=== PATIENT | female | born 1975 | race Caucasian/White ===

== ENCOUNTER 2017-09-30 15:12 | Emergency (ER) | payer OTHER ==
[2017-09-30 15:56] VITALS: BP 135/84
--- NOTE | 2017-09-30 17:17 | UC ---
Delmar Romero SooYoung, scribed for Leopoldo Williamson MD on 09/30/17 at 1649 . Respiratory Complaint HPI - HPI Summary HPI Summary: A 42 y/o F presents to [facility] – [place] c/o ongoing cough onset two months ago and worsening. Associated sx: congestion, chest pressure, SOB, headaches, body aches , fevers, chills. Pt has not taken any treatments. PMHx: [place] in 2011, valve problem, hole in heart, cardiac stent, asthma, PNA, bronchitis. Alleviating factors include inhaler, nebulizer. She is scheduled to see her parking meter installer tomorrow. - History of Current Complaint Chief Complaint: UCRespiratory Stated Complaint: COUGH Time Seen by Provider: 09/30/17 16:22 Hx Obtained From: Patient Hx Last Menstrual Period: hysterectomy Onset/Duration: Gradual Onset, Lasting Weeks - two months, Still Present Timing: Constant Severity Initially: Moderate Severity Currently: Moderate Pain Intensity: 6 Pain Scale Used: 0-10 Numeric Character: Cough: Productive Aggravating Factors: Deep Breaths Alleviating Factors: Bronchodilator Associated Signs And Symptoms: Positive: Fever, Chills, Wheezing, URI, Nasal Congestion - Allergies/Home Medications Allergies/Adverse Reactions: Allergies Allergy/AdvReac Type Severity Reaction Status Date / Time Penicillins AdvReac Mild Nausea And Verified 09/30/17 15:56 Vomiting milk Allergy Abdominal Uncoded 09/30/17 15:56 Pain Home Medications: Home Medications Bethanechol TAB* [Urecholine TAB*] 1 tab PO BID 09/30/17 [History Confirmed ] Budesonide/Formote 80/4.5(NF) [Symbicort 80/4.5 (NF)] 1 puff INH DAILY 09/30/17 [History Confirmed 09/30/17] LORazepam TAB(*) [Ativan 1 MG TAB (*)] 1 tab PO DAILY 09/30/17 [History Confirmed 09/30/17] Loratadine 10 mg PO BEDTIME 09/30/17 [History Confirmed 09/30/17] PMH/Surg Hx/FS Hx/Imm Hx Previously Healthy: No Cardiovascular History: Hypertension, Myocardial Infarction Respiratory History: Asthma, Bronchitis, Pneumonia - Surgical History Surgical History: Yes Surgery Procedure, Year, and Place: c section x 2, cardiac stents x2 2012 - Family History Known Family History: Positive: Cardiac Disease, Diabetes - Social History Occupation: Unemployed Lives: With Family Alcohol Use: None Substance Use Type: None Smoking Status (MU): Heavy Every Day Tobacco Smoker Type: Cigarettes Amount Used/How Often: 1/2 pack a day Length of Time of Smoking/Using Tobacco: 10 yrs Have You Smoked in the Last Year: Yes Household Exposure Type: Cigarettes Review of Systems Constitutional: Fever, Chills ENT: Sinus Congestion Respiratory: Shortness Of Breath, Cough Cardiovascular: Other - chest pressure Musculoskeletal: Myalgia Neurological: Headache All Other Systems Reviewed And Are Negative: Yes Physical Exam Triage Information Reviewed: Yes Appearance: Well-Appearing, No Pain Distress Vital Signs: Initial Vital Signs Temp 98.4 F 09/30/17 15:46 Pulse 48 09/30/17 15:46 Resp 16 09/30/17 15:46 BP 135/84 09/30/17 15:46 Pulse Ox 100 09/30/17 15:46 Vital Signs Reviewed: Yes Eyes: Positive: Other: - EOMI, DALE ENT Exam: Normal Neck: Positive: Supple, Nontender Respiratory: Positive: No respiratory distress, Wheezing - scattered wheezing bilaterally Cardiovascular: Positive: RRR, No Murmur. Negative: Tachycardia Abdomen Description: Positive: Nontender, Soft Bowel Sounds: Positive: Present Musculoskeletal: Positive: Strength Intact, ROM Intact, No Edema Neurological: Positive: Other: - nml, sensory/motor intact, A&O x 3 Psychological: Positive: Age Appropriate Behavior Skin: Positive: Other - warm, skin color reflects adequate perfusion, dry Diagnostic Evaluation - Laboratory O2 Sat by Pulse Oximetry: 100 Respiratory Course/Dx - Course Course Of Treatment: A 42 y/o F presents to E c/o ongoing cough onset two months ago and worsening. Associated sx: congestion, chest pressure, SOB, headaches, body aches, fevers, chills. Pt has not taken any treatments. PMHx: [place] in 2011, valve problem, hole in heart, cardiac stent, asthma, PNA, bronchitis. Alleviating factors include inhaler, nebulizer. She is scheduled to see her parking meter installer tomorrow. Pre-Hypertensive BP reading (121-139/81-89); patient referred to PCP for follow-up. Medications reviewed. DISCUSSED WITH PATIENT DUE TO REPORTED HEART AND OTHER MEDICAL HISTORY, THE BEST PLACE FOR FURTHER EVALUATION AND CARE IS THE EMERGENCY DEPARTMENT. PATIENT REPORTS SHE HAS A SCHEDULED APPOINTMENT WITH HER SEED TECHNICIAN IN [place] TOMORROW, . THE PATIENT REPORTS SHE FEELS THIS IS BRONCHITIS EVERYONE ELSE IN THE HOUSE HAS IT AND SHE IS COUGHING UP PHLEGM AND WHEEZING. SHE DECLINES GOING TO THE EMERGENCY DEPARTMENT AND PREFERS BRONCHITIS/COPD TREATMENT AT THIS TIME AND F/U WITH HER SEED TECHNICIAN TOMORROW. SHE WILL GO TO THE EMERGENCY DEPARTMENT FOR ANY WORSENING OF HER CONDITION. - Differential Dx/Diagnosis Provider Diagnoses: 1. Blood pressure in poor control. DYPNEA AND COUGH. BRONCHITS WITH COPD EXACERBATION Discharge - Discharge Plan Condition: Stable Disposition: HOME Prescriptions: Albuterol/Ipratropium NEB.CHARU* [Duoneb (Albuterol 2.5 MG/Ipratropium 0.5 MG)] 1 neb INH Q6H PRN #30 neb.charu PRN Reason: Dyspnea Azithromyxin ELGIN (NF) [Z-Elgin (Zithromax) 250 mg tabs #6] 2 tab PO .TODAY, THEN 1 DAILY #6 tab Patient Education Materials: Acute Bronchitis (ED), COPD (Chronic Obstructive Pulmonary Disease) (ED) Referrals: Eileen Bagley PA [Primary Care Provider] - Additional Instructions: FOLLOW UP WITH YOUR SEED TECHNICIAN TOMORROW SCHEDULED AND YOUR PRIMARY CARE DOCTOR. GO TO THE EMERGENCY DEPARTMENT FOR ANY WORSENING OF YOUR CONDITION OR QUESTIONS OR CONCERNS. The documentation as recorded by the Delmar enriquez SooYoung accurately reflects the service I personally performed and the decisions made by me, Leopoldo Williamson MD.
== END 2017-09-30 16:44 | disposition home or self-care (01) ==
LOC: UCEAST 15:12
DX: R03.0 Elevated blood-pressure reading, without diagnosis of hypertension (principal); R06.00 Dyspnea, unspecified; R05 Cough; J40 Bronchitis, not specified as acute or chronic; J44.1 Chronic obstructive pulmonary disease with (acute) exacerbation; Z72.0 Tobacco use
CPT/HCPCS: 99212; G0463

== ENCOUNTER 2018-01-14 10:24 | Emergency (ER) | payer MEDICAID, OTHER ==
[2018-01-14 10:45] VITALS: BP 128/54
--- NOTE | 2018-01-14 11:10 | UC ---
Respiratory Complaint HPI - HPI Summary HPI Summary: Pt presents with chest pressure of varying severity over the last 5 days. She tells me that she has a history of cardiac abnormalities, [place], and stenting. Her sister about 6 months ago from a cardiac disorder. Pt also knows that she has lung issues and gets bronchitis often. She is frustrated today because everytime she has a resp issue, providers will send her to the hospital due to her cardiac symptoms. She also complains of feeling weak and tired. Denies fever , chills, SOB, abdominal pain, n/v/d/c. She does have an albuterol inhaler and duoneb for her nebulizer at home, but doesn't like to use it because it makes her heart "go too fast". - History of Current Complaint Chief Complaint: UCChestPain Stated Complaint: RESP ISSUE COUGH Time Seen by Provider: 01/14/18 10:43 Hx Obtained From: Patient Hx Last Menstrual Period: hysterectomy Onset/Duration: Gradual Onset Timing: Constant Severity Initially: Mild Severity Currently: Mild Pain Intensity: 3 Pain Scale Used: 0-10 Numeric - Allergies/Home Medications Allergies/Adverse Reactions: Allergies Allergy/AdvReac Type Severity Reaction Status Date / Time Penicillins Allergy Nausea And Verified 01/14/18 10:34 Vomiting milk Allergy Abdominal Uncoded 01/14/18 10:34 Pain Home Medications: Home Medications Loratadine 10 mg PO DAILY 01/14/18 [History Confirmed 01/14/18] PMH/Surg Hx/FS Hx/Imm Hx Cardiovascular History: Hypertension Respiratory History: COPD, Asthma Psychological History: Anxiety, Depression - Surgical History Surgical History: Yes Surgery Procedure, Year, and Place: c section x 2, cardiac stents x2 2012 - Family History Known Family History: Positive: Cardiac Disease, Diabetes - Social History Lives: With Family Alcohol Use: Rare Substance Use Type: None Smoking Status (MU): Heavy Every Day Tobacco Smoker Type: Cigarettes Amount Used/How Often: 2 PPD Length of Time of Smoking/Using Tobacco: 10 yrs Have You Smoked in the Last Year: Yes Household Exposure Type: Cigarettes Review of Systems Constitutional: Negative Skin: Negative ENT: Negative Respiratory: Cough Cardiovascular: Other - Chest pressure Gastrointestinal: Negative Genitourinary: Negative Neurological: Negative Psychological: Negative All Other Systems Reviewed And Are Negative: Yes Physical Exam - Summary Physical Exam Summary: GENERAL: NAD. WDWN. No pain distress. SKIN: No rashes, sores, ulcers, masses, lesions. HEENT: Head: AT/NC Eyes: Conjunctiva clear without inflammation or discharge. Ears: Hearing grossly normal. TMs intact, no bulging, erythema, or edema. Nose: Nasal mucosa pink and moist. NTTP maxillary and frontal sinus. Throat: Posterior oropharynx without exudates, erythema, or tonsillar enlargement. Uvula midline. NECK: Supple. Nontender. No lymphadenopathy. CHEST: Mild wheezing throughout. CTAB. No r/r. No accessory muscle use. Breathing comfortably and in no distress. CV: RRR. Pulses intact. Brisk cap refill. NEURO: Alert. CN II-XII grossly intact. PSYCH: Age appropriate behavior. Triage Information Reviewed: Yes Vital Signs: Initial Vital Signs Temp 98.0 F 01/14/18 10:37 Pulse 53 01/14/18 10:37 Resp 16 01/14/18 10:37 BP 128/54 01/14/18 10:37 Pulse Ox 100 01/14/18 10:37 UC Diagnostic Evaluation - Laboratory O2 Sat by Pulse Oximetry: 100 Respiratory Course/Dx - Course Course Of Treatment: UA negative. EKG Sinus bradycardia HR 48, LVH, left anterior fascicular block as read by Dr. Fitzpatrick. Pt refused ED. CXR: IMPRESSION : Stigmata of obstructive lung disease. No acute pulmonary or cardiac process evident. I advised patient that her EKG looks changed from her previous one on record and her symptoms could be related to this - she should seek further evaluation in the ED. She refused to go to the ED and agreed to sign out AMA, but would like an antibiotic for her "bronchitis". - Differential Dx/Diagnosis Provider Diagnoses: Chest pressure Discharge - Discharge Plan Condition: Stable Disposition: AGAINST MEDICAL ADVICE Prescriptions: DOXYcycline CAP(*) [DOXYcycline 100MG CAP(*)] 100 mg PO BID #14 cap Patient Education Materials: Chest Pain (DC) Referrals: No Primary Care Phys,NOPCP [Primary Care Provider] - Additional Instructions: If you develop a fever, shortness of breath, chest pain, new or worsening symptoms - please call your PCP or go to the ED.
--- NOTE | 2018-01-14 11:19 | RAD ---
INDICATION: Cough. Asthma. History of smoking. COMPARISON: July 01, 2016 TECHNIQUE: Dual energy PA and routine lateral views of the chest were obtained. REPORT: Elevated lung volumes with increased AP thoracic diameter and partial flattening of the hemidiaphragms. No focal pulmonary lesion, compelling alveolar consolidation, pleural effusion, pneumothorax. The heart, pulmonary vasculature, and mediastinal contours are unremarkable. Unremarkable soft tissue contours and osseous structures. IMPRESSION: Stigmata of obstructive lung disease. No acute pulmonary or cardiac process evident.
== END 2018-01-14 11:37 | disposition left against medical advice (07) ==
LOC: UCEAST 10:24
DX: R07.89 Other chest pain (principal); R00.1 Bradycardia, unspecified; I10 Essential (primary) hypertension; J44.9 Chronic obstructive pulmonary disease, unspecified; F41.9 Anxiety disorder, unspecified; F32.9 Major depressive disorder, single episode, unspecified; Z88.0 Allergy status to penicillin; F17.210 Nicotine dependence, cigarettes, uncomplicated
CPT/HCPCS: 71046; 81003; 93005; 99212; G0463

== ENCOUNTER 2019-01-01 09:54 | Emergency (ER) | payer OTHER ==
--- OUTSIDE RECORDS SUMMARY | 2019-01-01 10:01 | XMS REPORT | Continuity of Care Document ---
:1975 External Reference #:[id number] Author Name Paulo Murdock MD Address [address] [place] [address] Care Team Providers Name Role Phone Leeanna Rios MD Care Team Information Acid Regenerator Unavailable Radha Flores MD, PHD Primary Care Physician Unavailable Payers Type Date Identification Numbers Payment Provider Subscriber Policy Number: [id number] [employer] [place] You PayID: [id number] [address] [place] [address] Advance Directives Description No Information Available Problems Date Description Provider Status Onset: 12/11/2012 Coronary arteriosclerosis Grella, Dora A., ANP Active Onset: 12/11/2012 Benign essential hypertension Grella, Dora A., ANP Active Onset: 12/11/2012 Mixed hyperlipidemia Grella, Dora A., ANP Active Onset: 05/21/2013 Coronary arteriosclerosis Grella, Dora A., ANP Active Onset: 05/21/2013 Dyspnea Grella, Dora A., ANP Active Onset: 08/04/2015 Essential hypertension Grella, Dora A., ANP Active Onset: 08/06/2015 Atherosclerotic heart disease of Grella, Dora A., 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 Onset: 08/06/2015 Mixed hyperlipidemia Grella, Dora A., ANP Active Onset: 08/06/2015 Precordial pain Grella, Dora A., ANP Active Onset: 08/06/2015 Dyspnea Grella, Dora A., ANP Active Onset: 08/06/2015 Anticoagulant Grella, Dora A., ANP Active Onset: 01/02/2016 Obstructive hypertrophic Grella, Dora A., ANP Active cardiomyopathy Onset: 01/02/2016 Acute sinusitis Dora Fernandez ANP Active Onset: 01/02/2016 Anemia Dora Fernandez ANP Active Onset: 11/23/2016 Mitral valve disorder Carla Loera, Active MSN, [employer] Onset: 01/29/2018 Chest pain Cori Garcia PA Active Onset: 01/29/2018 Malaise and fatigue Cori Garcia PA Active Family History Date Family Member(s) Problem(s) Comments General Not Known - Adopted General Emphysema Social History Type Date Description Comments Sex Unknown Marital Status Patient is Lives With Significant Other Home Environment Lives With Fiance and 2 kids Diet Patient follows no dietary restrictions Occupation Disabled Cigarette Use Pack Years - 08 Tobacco Use Start: Unknown currently smokes 1/2 Pack Daily Smoking Status Reviewed: 12/04/18 currently smokes 1/2 Pack Daily ETOH Use Never used alcohol Tobacco Use Start: Unknown Patient is a current smoker, smokes every day Exercise Type/Frequency Exercises regularly Allergies, Adverse Reactions, Alerts Date Description Reaction Status Severity Comments Penicillins Active Medications Medication Date Status Form Strength Qnty SIG Indications Ordering Provider Metoprolol 08/15/ Active Tablets ER 50mg 90tab 1/2 tablet R53.83 Loera , Succinate ER 2017 24HR s by mouth Carla twice a day YI Pittman, [employer] Symbicort 08/14/ Active Aerosol 80-4.5mcg 30.6g inhale one J44.9 Kheti, 2017 /Act m puff by MD Martín mouth twice a day . rinse mouth after use. please teach how to use inhaler. Proventil HFA 06/15/ Active Aerosol 108(90Bas 1unit two puffs J44.9 Kheti, 2015 e) s every 4 MD Martín mcg/Act hours as needed for shortness of breath Aspirin Ec Low 02/13/ Active Tablets DR 81mg 30tab Take One I25.10 Loera, Dose 2015 s Tablet By Carla Mouth Every Day , MSN, [employer] Nitrostat / Active Tablets 0.4mg 30tab 1 tab sl Loera, 0000 Sub s every 5 min Carla x3 chest Toya rubi , MSN, [employer] Claritin 00/ Active Capsules 10mg 1 by mouth Unknown 0000 every day Bethanechol / Active Tablets 10mg 1 tabs by Unknown Chloride 0000 mouth twice a day for urinary frequency Atorvastatin / Active Tablets 40mg 30tab Take One Loera, Calcium 0000 s Tablet By Carla Mouth Every Day , MSN, [employer] Nicotine 11/15/ Hx Patches 21mg/24HR 14uni starter 1 Murdock, Transdermal 2018 24HR ts patch per MD Paulo System Step 1 day Nicotine 11/15/ Hx Patches 14mg/24HR 14uni weaning Murdock, Transdermal 2018 24HR ts week 3. MD Paulo System Step 2 topicalaly 1 patch daily Nicotine 11/15/ Hx Patches 7mg/24HR 14uni weaning Murdock, Transdermal 2018 24HR ts week 5. 1 MD Paulo System Step 3 patch topically daily Metoprolol 04/22/ Hx Tablets 25mg 90tab 1 by mouth R53.83 Loera, Tartrate 2018 - s twice a day Carla 08/15/ 2017 , MSN, [employer] Metoprolol 04/18/ Hx Tablets 25mg 60tab 1/2 tab by R53.83 Eric Tartrate 2018 - s mouth twice , Evaristo 04/22/ a day Emily Lee, 2018 [facility] Ranexa 04/18/ Hx Tablets ER 500mg 60tab 1 tab by I25.119 Eric 2018 - 12HR s mouth twice , Evaristo 07/22/ a day Emily Lee, 2018 [facility] Clopidogrel 03/22/ Hx Tablets 75mg 30tab 1 by mouth I25.10 Eric Bisulfate 2018 s every day , Evaristo Lee M.D., [facility] Ranexa 03/22/ Hx Tablets ER 500mg 60tab 1 tab by I25.10 Eric 2018 12HR s mouth twice , Ivana day Emily Lee, [facility] Nicotine Mini 03/22/ Hx Lozenges 2mg 162un Use 1 F17.210 Eric 2018 its lozenge , Evaristo every 2-3 Emily Lee, hours as FACC needed. Maximum 12 lozenges per day. Levofloxacin // Hx Tablets 750mg 5tabs 1 by mouth J44.9 Sundeep, 2016 every day MD Martín Metoprolol 06/10/ Hx Tablets ER 50mg 120ta Take Two Loera, Succinate ER 2016 24HR bs Tablets By Carla Mouth Twice A Day , MSN, [employer] Spiriva Respimat 02/22/ Hx Aerosol 2.5mcg/Ac 4gm take 2 J41.0 Cheli2016 t puffs once MD Martín daily. Please load and teach medication Metoprolol 01/31/ Hx Tablets ER 50mg 1 by mouth I42.1 Loera, Succinate ER 2016 - 24HR twice a day Carla 2016 , MSN, [employer] Nicotine 10/23/ Hx Gum 2mg 1unit take 1 I42.1 Sundeep Polacrilex 2015 s piece every MD Martín 2 hours as needed for cravings. Doxycycline 10/05/ Hx Tablets 100mg 10tab Take 1 Sundeep Hyclate 2015 s tablet MD Martín twice daily. Compression, 07/03/ Hx 20-30MMHG 1Pair please Leonidas Murdock High, 2016 measure MD Paulo Bilateral, Class I Metoprolol 12/31/ Hx Tablets ER 50mg 100ta 2 by mouth I42.1 Murdock, Succinate ER 2016 24HR bs every day, MD Paulo for one week, then three for one week, then four for one week, then continue the four a day. Bactrim DS 12/31/ Hx Tablets 800-160mg 14tab one po bid J01.90 Mathieu, 2016 s MD Paulo Metoprolol 08/04/ Hx Tablets ER 50mg 90tab 1 by mouth I10 Loera, Succinate ER 2014 - 24HR s every day Carla 2015 , MSN, [employer] Aspir-81 08/04/ Hx Tablets DR 81mg 90tab 1 by mouth I25.10 Evaristo 2014 - s every day Carla 2015 , MSN, [employer] Atorvastatin 08/04/ Hx Tablets 40mg 90tab Take One E78.2 Loera, Calcium 2014 s Tablet By Carla Mouth Every Day , MSN, [employer] Atorvastatin 12/18/ Hx Tablets 40mg 30tab Take One Guidry, Calcium 2013 s Tablet By Emmett Donaldson Every , PhD Day Carvedilol 01/09/ Hx Tablets 3.125mg 60tab tab po bid 414.01 Chao2012 - first dose Mohamud Pierce, 01/09/ at bedtime , PhD 2012 Metoprolol 01/09/ Hx Tablets 25mg 180ta 1.5 tabs po 414.01 Chao Tartrate 2012 bs bid Mohamud Pierce MD, PhD Chlorthalidone / Hx Tablets 25mg 90tab 1 po qd Unknown 0000 s Flovent HFA / Hx Aerosol 110mcg/Ac 2 puffs qd Unknown t Aspirin Ec / Hx Tablets DR 81mg 1 po qd Unknown 0000 Lipitor / Hx Tablets 40mg 30tab 1 po qd Guidry Mohamud Pierce, 12/18/ MD, PhD 2013 Plavix / Hx Tablets 75mg 30tab 1 po qd 414.01 Chao Mohamud Pierce, 05/21/ MD, PhD 2012 Lisinopril Hx Tablets 5mg 90tab Take One Tablet By Mohamud Pierce Mouth Every , PhD Seroquel / Hx Tablets 50mg take one Unknown 0000 tablet each night before bed Lorazepam / Hx Tablets 0.5mg tab twice a Unknown 0000 day as needed Gail / Hx Capsules 300mg 1 po qhs Unknown Carbonate 0000 Quetiapine / Hx Tablets 100mg 1 by mouth Unknown Fumarate 0000 every night at bedtime Trazodone HCL / Hx Tablets 50mg 1 po daily Unknown 0000 Metoprolol / Hx Tablets ER 50mg 120ta take two I42.1 Loera, Succinate ER 0000 - 24HR bs tablets by Carla 01/31/ mouth twice Simonetta 2016 a day , MSN, [employer] Atenolol / Hx Tablets 50mg 1 by mouth Unknown 0000 every day Docqlace / Hx Capsules 100mg Take One Unknown 0000 Capsule By Mouth Twice A Day Ibuprofen / Hx Tablets 800mg Take One Unknown 0000 Tablet By Mouth Every 8 Hours prn Oxcarbazepine / Hx Tablets 300mg 2 po tid Unknown 0000 Lorazepam / Hx Tablets 1mg 1 mg by Unknown 0000 mouth every 8 hours as needed anxiety Metoprolol 00/00/ Hx Tablets ER 50mg 120ta Take Two Loera, Succinate ER 0000 - 24HR bs Tablets By Carla 06/10/ Mouth Twice Simonetta 2016 A Day , MSN, [employer] Metoprolol 00/00/ Hx Tablets ER 50mg 120ta Take Two Davidenko Succinate ER 0000 24HR bs Tablets By Evaristo Mouth Twice M., M.D., A Day FACC Metoprolol 00/ Hx Tablets 25mg 1 tab by I42.1 Unknown Tartrate 0000 - mouth twice day 2017 R53.83 Immunizations CPT Code Status Date Vaccine Lot # [id number] Given 09/12/2012 flu vaccination Vital Signs Date Vital Result Comment 12/04/2018 11:02am BP Systolic Sitting Left Arm 124 mmHg BP Diastolic Sitting Left Arm 92 mmHg Heart Rate 63 /min Respiratory Rate 18 /min Height 62 inches 5'2" Weight 122.00 lb BMI (Body Mass Index) 22.3 kg/m2 BSA (Body Surface Area) 1.55 m2 [place] body weight in kilograms 50 kg O2 % BldC Oximetry 98 % Ora 06/03/2018 10:25am BP Systolic Sitting Right Arm 120 mmHg BP Diastolic Sitting Right Arm 80 mmHg Heart Rate 78 /min Respiratory Rate 16 /min Height 62 inches 5'2" Weight 120.00 lb BMI (Body Mass Index) 21.9 kg/m2 BSA (Body Surface Area) 1.54 m2 [place] body weight in kilograms 50 kg O2 % BldC Oximetry 94 % 04/18/2018 10:49am BP Systolic Sitting Left Arm 110 mmHg BP Diastolic Sitting Left Arm 68 mmHg Heart Rate 49 /min Respiratory Rate 16 /min Height 62 inches 5'2" Weight 122.00 lb BMI (Body Mass Index) 22.3 kg/m2 BSA (Body Surface Area) 1.55 m2 [place] body weight in kilograms 50 kg O2 % BldC Oximetry 98 % Room air 03/22/2018 11:27am BP Systolic Sitting Left Arm 102 mmHg BP Diastolic Sitting Left Arm 70 mmHg Heart Rate 66 /min Respiratory Rate 16 /min Height 62 inches 5'2" Weight 121.00 lb BMI (Body Mass Index) 22.1 kg/m2 BSA (Body Surface Area) 1.54 m2 [place] body weight in kilograms 50 kg 01/29/2018 1:03pm BP Systolic Sitting Left Arm 105 mmHg BP Diastolic Sitting Left Arm 68 mmHg Heart Rate 60 /min Respiratory Rate 18 /min Height 62 inches 5'2" Weight 117.00 lb BMI (Body Mass Index) 21.4 kg/m2 BSA (Body Surface Area) 1.52 m2 [place] body weight in kilograms 50 kg 10/10/2017 9:15am BP Systolic Sitting Left Arm 110 mmHg BP Diastolic Sitting Left Arm 78 mmHg Heart Rate 62 /min Respiratory Rate 16 /min Height 62 inches 5'2" Weight 119.00 lb BMI (Body Mass Index) 21.8 kg/m2 BSA (Body Surface Area) 1.53 m2 [place] body weight in kilograms 50 kg 08/20/2017 3:06pm BP Systolic Sitting Left Arm 118 mmHg BP Diastolic Sitting Left Arm 88 mmHg Heart Rate 60 /min Respiratory Rate 16 /min Height 62 inches 5'2" Weight 124.00 lb BMI (Body Mass Index) 22.7 kg/m2 BSA (Body Surface Area) 1.56 m2 [place] body weight in kilograms 50 kg 08/14/2017 4:09pm BP Systolic Sitting Right Arm 128 mmHg BP Diastolic Sitting Right Arm 82 mmHg Heart Rate 45 /min Respiratory Rate 16 /min Height 62 inches 5'2" Weight 125.00 lb BMI (Body Mass Index) 22.9 kg/m2 BSA (Body Surface Area) 1.57 m2 [place] body weight in kilograms 50 kg O2 % BldC Oximetry 98 % Ora 06/20/2017 11:43am BP Systolic Sitting Right Arm 118 mmHg BP Diastolic Sitting Right Arm 82 mmHg Heart Rate 44 /min Respiratory Rate 18 /min Height 62 inches 5'2" Weight 126.00 lb BMI (Body Mass Index) 23.0 kg/m2 BSA (Body Surface Area) 1.57 m2 [place] body weight in kilograms 50 kg 02/22/2017 1:39pm BP Systolic Sitting Right Arm 112 mmHg BP Diastolic Sitting Right Arm 68 mmHg Heart Rate 52 /min Respiratory Rate 16 /min Height 62 inches 5'2" Weight 128.00 lb BMI (Body Mass Index) 23.4 kg/m2 BSA (Body Surface Area) 1.58 m2 O2 % BldC Oximetry 98 % Room air 01/31/2017 11:14am BP Systolic Sitting Left Arm 122 mmHg BP Diastolic Sitting Left Arm 80 mmHg Heart Rate 36 /min Respiratory Rate 18 /min Height 62 inches 5'2" Weight 134.00 lb BMI (Body Mass Index) 24.5 kg/m2 BSA (Body Surface Area) 1.61 m2 11/23/2016 10:13am BP Systolic Sitting Left Arm 128 mmHg BP Diastolic Sitting Left Arm 78 mmHg Heart Rate 36 /min Respiratory Rate 16 /min Height 62 inches 5'2" Weight 131.00 lb BMI (Body Mass Index) 24.0 kg/m2 BSA (Body Surface Area) 1.60 m2 10/23/2016 1:43pm BP Systolic Sitting Right Arm 126 mmHg BP Diastolic Sitting Right Arm 74 mmHg Heart Rate 46 /min Respiratory Rate 16 /min Height 62 inches 5'2" Weight 134.00 lb BMI (Body Mass Index) 24.5 kg/m2 BSA (Body Surface Area) 1.61 m2 O2 % BldC Oximetry 98 % Room Air 09/18/2016 10:47am BP Systolic Sitting Left Arm 134 mmHg BP Diastolic Sitting Left Arm 80 mmHg Heart Rate 42 /min Respiratory Rate 16 /min Height 62 inches 5'2" Weight 135.00 lb BMI (Body Mass Index) 24.7 kg/m2 BSA (Body Surface Area) 1.62 m2 08/21/2016 1:10pm BP Systolic Sitting Right Arm 104 mmHg BP Diastolic Sitting Right Arm 56 mmHg Heart Rate 43 /min Respiratory Rate 18 /min Height 62 inches 5'2" Weight 143.00 lb BMI (Body Mass Index) 26.2 kg/m2 BSA (Body Surface Area) 1.66 m2 O2 % BldC Oximetry 97 % 08/07/2016 9:31am BP Systolic Sitting Left Arm 106 mmHg BP Diastolic Sitting Left Arm 62 mmHg Heart Rate 40 /min Respiratory Rate 16 /min Height 62 inches 5'2" Weight 140.00 lb BMI (Body Mass Index) 25.6 kg/m2 BSA (Body Surface Area) 1.64 m2 06/15/2016 9:38am BP Systolic Sitting Resting Right Arm 118 mmHg BP Diastolic Sitting Resting Right Arm 62 mmHg Heart Rate 37 /min Height 62 inches 5'2" Weight 142.00 lb BMI (Body Mass Index) 26.0 kg/m2 BSA (Body Surface Area) 1.65 m2 [place] body weight in kilograms 50 kg 04/07/2016 9:52am BP Systolic 112 mmHg BP Diastolic 62 mmHg Heart Rate 58 /min Height 62.5 inches 5'2.50" Weight 143.00 lb BMI (Body Mass Index) 25.7 kg/m2 BSA (Body Surface Area) 1.67 m2 [place] body weight in kilograms 51 kg 01/27/2016 11:05am BP Systolic Sitting Left Arm 110 mmHg BP Diastolic Sitting Left Arm 66 mmHg Heart Rate 70 /min Height 62 inches 5'2" Weight 137.00 lb BMI (Body Mass Index) 25.1 kg/m2 BSA (Body Surface Area) 1.63 m2 12/31/2015 11:16am BP Systolic Sitting Left Arm 124 mmHg BP Diastolic Sitting Left Arm 78 mmHg Heart Rate 60 /min Respiratory Rate 16 /min Height 62.5 inches 5'2.50" Weight 141.00 lb BMI (Body Mass Index) 25.4 kg/m2 BSA (Body Surface Area) 1.66 m2 08/04/2015 11:40am BP Systolic Sitting Right Arm 118 mmHg BP Diastolic Sitting Right Arm 78 mmHg Heart Rate 66 /min Respiratory Rate 16 /min Height 62.5 inches 5'2.50" Weight 131.00 lb BMI (Body Mass Index) 23.6 kg/m2 BSA (Body Surface Area) 1.61 m2 07/02/2013 2:07pm BP Systolic Sitting Right Arm 120 mmHg BP Diastolic Sitting Right Arm 64 mmHg Heart Rate 80 /min Respiratory Rate 16 /min Height 62.5 inches 5'2.50" Weight 133.00 lb BMI (Body Mass Index) 23.9 kg/m2 BSA (Body Surface Area) 1.62 m2 05/21/2013 3:27pm BP Systolic Sitting Right Arm 126 mmHg BP Diastolic Sitting Right Arm 80 mmHg Heart Rate 58 /min Respiratory Rate 16 /min Height 62.5 inches 5'2.50" Weight 140.00 lb BMI (Body Mass Index) 25.2 kg/m2 BSA (Body Surface Area) 1.65 m2 01/09/2013 2:52pm BP Systolic Sitting Right Arm 122 mmHg BP Diastolic Sitting Right Arm 92 mmHg Heart Rate 84 /min Respiratory Rate 16 /min Height 62.5 inches 5'2.50" Weight 154.00 lb BMI (Body Mass Index) 27.7 kg/m2 BSA (Body Surface Area) 1.72 m2 12/09/2012 1:14pm BP Systolic Sitting Right Arm 158 mmHg BP Diastolic Sitting Right Arm 98 mmHg Heart Rate 54 /min Respiratory Rate 16 /min Height 62.5 inches 5'2.50" Weight 155.00 lb BMI (Body Mass Index) 27.9 kg/m2 BSA (Body Surface Area) 1.73 m2 BP Systolic Recheck 130 mmHg BP Diastolic Recheck 80 mmHg Results Test Date Facility Test Result H/L Range Note LDL Cholesterol 03/21/2018 [facility] Cholesterol 117 mg/dL <200 1, 2 Profile [address] [place], [place] [id number] [phone] Triglycerides 158 mg/dL High <150 3 HDL Cholesterol 30 mg/dL Low >40 4 LDL-Cholesterol 55 mg/dL < 100 5 Reflex add FT3? Y Reflex add FT4? Y TSH Reflex FT4 03/21/2018 [facility] Thyroid Stim 1.39 uIU/mL N 0.30-4.20 And/Or FT3 [address] [facility] Hormone [place], [place] [id number] [phone] Reflex add FT3? Y Reflex add FT4? Y Comprehensive Metabolic 03/21/2018 [facility] Glucose 65 mg/dL Low 74-106 Panel [address] [place] [address] [phone] BUN 7 mg/dL N 7-18 Creatinine 0.7 mg/dL N 0.6-1.3 Glom Filtration Rate, Estimate >60 mL/min >60 If >60 mL/min >60 6 BUN/Creat 10.0 ratio Sodium 140 mmol/L N 136-145 Potassium 4.0 mmol/L N 3.5-5.1 Chloride 105 mmol/L N 98-107 Carbon Dioxide 29 mmol/L N 21-32 Anion Gap 6 mEq/L Low 8-16 Calcium 8.9 mg/dL N 8.5-10.1 Total Protein 7.0 g/dL N 6.4-8.2 Albumin 3.8 g/dL N 3.4-5.0 Globulin 3.2 g/dL N 1.9-4.3 Alb/Glob 1.2 ratio Bilirubin,Total 0.6 mg/dL N 0.2-1.0 Sgot/Ast 18 U/L N 15-37 SGPT/Alt 15 U/L N 12-78 Alkaline Phosphatase 30 U/L Low 45-117 Reflex add FT3? Y Reflex add FT4? Y CBS W/Automated Diff 03/21/2018 [facility] White Blood 9.7 K/uL N 3.1-10.[address] [place] [address] [phone] Red Blood Count 4.82 M/uL N 3.90-5.40 Hemoglobin 15.1 gm/dL N 11.6-15.8 Hematocrit 43.5 % N 36.0-46.1 Mean Cell Volume 90.2 fl N 80.9-99.0 Mean Corpuscular HGB 31.3 pg N 25.9-32.7 Mean Corpuscular HGB Conc 34.7 g/dL High 30.8-34.3 Platelet Count 115 K/uL Low 155-360 Red Cell Distri Width SD 44.0 fl N 3-47 Red Cell Distri Width %CV 13.6 % N 11.7-14.4 Mean Platelet Volume 10.9 fL N 8.9-12.4 Neut% 61.3 % N 40.4-72.8 Lymph % 28.5 % N 20.0-42.0 [place] % 8.2 % N 4.3-13.2 Eo% 1.8 % N 0.0-6.6 Bas% 0.2 % N 0.0-1.1 Neut# 5.95 K/uL N 1.8-7.0 Lymph # 2.76 K/uL N 1.0-4.0 [place] # 0.79 K/uL N 0.3-0.9 Eos # 0.17 K/uL N 0.0-0.5 Baso # 0.02 K/uL N 0.0-0.1 CBC W/Automated 11/23/2016 [facility] White Blood 11.1 K/uL High 3.1-10.7 [address] [place] [address] [phone] Red Blood Count 4.69 M/uL N 3.90-5.40 Hemoglobin 9.6 gm/dL Low 11.6-15.8 Hematocrit 32.0 % Low 36.0-46.1 Mean Cell Volume 68.2 fl Low 80.9-99.0 Mean Corpuscular HGB 20.5 pg Low 25.9-32.7 Mean Corpuscular HGB Conc 30.0 g/dL Low 30.8-34.3 Platelet Count 167 K/uL N 155-360 Red Cell Distri Width SD 46.2 fl N 3-47 Red Cell Distri Width %CV 19.2 % High 11.7-14.4 Mean Platelet Volume 10.5 fL N 8.9-12.4 8 Neut# 7.77 K/uL High 1.8-7.0 Lymph # 1.94 K/uL N 1.0-4.0 [place] # 1.01 K/uL High 0.3-0.9 Eos # 0.34 K/uL N 0.0-0.5 Baso # 0.03 K/uL N 0.0-0.1 Comprehensive Metabolic 11/23/2016 [facility] Glucose 85 mg/dL N 74-106 Panel [address] [place] [address] [phone] BUN 6 mg/dL Low 7-18 Creatinine 0.8 mg/dL N 0.6-1.3 Glom Filtration Rate, Estimate >60 mL/min N >60 If >60 mL/min N >60 9 BUN/Creat 7.5 ratio N Sodium 140 mmol/L N 136-145 Potassium 3.8 mmol/L N 3.5-5.1 Chloride 107 mmol/L N 98-107 Carbon Dioxide 28 mmol/L N 21-32 Anion Gap 5 mEq/L Low 8-16 Calcium 8.6 mg/dL N 8.5-10.1 Total Protein 7.4 g/dL N 6.4-8.2 Albumin 3.6 g/dL N 3.4-5.0 Globulin 3.8 g/dL N 1.9-4.3 Alb/Glob 0.9 ratio N Bilirubin,Total 0.2 mg/dL N 0.2-1.0 Sgot/Ast 13 U/L Low 15-37 10 SGPT/Alt 17 U/L N 12-78 Alkaline Phosphatase 31 U/L Low 45-117 LDL Cholesterol Profile 11/23/2016 [facility] Cholesterol 154 mg/dL N <200 11 [address] [place] [address] [phone] Triglycerides 131 mg/dL N <150 12 HDL Cholesterol 39 mg/dL Low >40 13 LDL-Cholesterol 89 mg/dL N < 100 14 Slide Review 11/23/2016 [facility] Slide Review DIFF ORDERED N [address] [place] [address] [phone] Path Review: 11/23/2016 [facility] Path Review: INDICATED,SLIDE N [address] <SEE NOTE> [place] [address] [phone] Differential-WBC 11/23/2016 [facility] Total Cells 100 #CELLS N Confirm [address] Counted [place] [address] [phone] Neutrophils% 74 % High 33-73 Lymph% 18 % Low 20-42 Monocyte% 6 % N 0-10 Eosinophil% 2 % N 0-5 Platelet Estimate NORMAL N Hypochromia 0-1+ N Anisocytosis 1+ N Microcytosis 2+ N CBC W/Automated Diff 04/07/2016 [facility] White Blood 9.6 K/uL 3.1-10.[address] Count [place] [address] [phone] Red Blood Count 4.20 M/uL 3.90-5.40 Hemoglobin 8.6 gm/dL Low 11.6-15.8 Hematocrit 30.5 % Low 36.0-46.1 Mean Cell Volume 72.6 fl Low 80.9-99.0 Mean Corpuscular HGB 20.5 pg Low 25.9-32.7 Mean Corpuscular HGB Conc 28.2 g/dL Low 30.8-34.3 Platelet Count 153 K/uL Low 155-360 Red Cell Distri Width SD 48.2 fl High 3-47 Red Cell Distri Width %CV 18.7 % High 11.7-14.4 Mean Platelet Volume 11.8 fL 8.9-12.4 Neut% 64.9 % 40.4-72.8 Lymph % 19.3 % 17.0-46.1 [place] % 9.5 % 4.3-13.2 Eo% 5.8 % 0.0-6.6 Bas% 0.5 % 0.0-1.1 Neut# 6.18 K/uL 1.8-7.0 Lymph # 1.84 K/uL 1.8-7.0 [place] # 0.91 K/uL High 0.3-0.9 Eos # 0.55 K/uL High 0.0-0.5 Baso # 0.05 K/uL 0.0-0.1 Comprehensive Metabolic 04/07/2016 [facility] Glucose 77 mg/dL 74-[address] [place], [place] [id number] [phone] BUN 14 mg/dL 7-18 Creatinine 0.8 mg/dL 0.6-1.3 Glom Filtration Rate, Estimate >60 mL/min >60 If >60 mL/min >60 16 BUN/Creat 17.5 ratio Sodium 140 mmol/L 136-145 Potassium 3.8 mmol/L 3.5-5.1 Chloride 108 mmol/L High 98-107 Carbon Dioxide 26 mmol/L 21-32 Anion Gap 6 mEq/L Low 8-16 Calcium 9.0 mg/dL 8.5-10.1 Total Protein 7.4 g/dL 6.4-8.2 Albumin 3.6 g/dL 3.4-5.0 Globulin 3.8 g/dL 1.9-4.3 Alb/Glob 0.9 ratio Bilirubin,Total 0.5 mg/dL 0.2-1.0 Sgot/Ast 10 U/L Low 15-37 17 SGPT/Alt 11 U/L Low 12-78 18 Alkaline Phosphatase 28 U/L Low 45-117 Laboratory test 04/07/2016 [facility] Thyroid Stim 2.02 uIU/mL 0.30-4.20 finding [address] [place] [address] [phone] Slide Review . 19 RBC Morphology 01/27/2016 [facility] Polychromasia 0-1+ [address] [place] [address] [phone] Hypochromia 1+ Anisocytosis 0-1+ Microcytosis 1+ Ovalocytes 0-1+ Laboratory test 01/27/2016 [facility] Magnesium 2.5 mg/dL High 1.8-2.4 finding [address] [place] [address] [phone] Thyroid Stim Hormone 5.65 uIU/mL High 0.36-3.74 Slide Review See Note 20 Comprehensive Metabolic 01/27/2016 [facility] Glucose 80 mg/dL 74-106 Panel [address] [place] [address] [phone] BUN 11 mg/dL 7-18 Creatinine 0.8 mg/dL 0.6-1.3 Glom Filtration Rate, Estimate >60 mL/min >60 If >60 mL/min >60 21 BUN/Creat 13.7 ratio Sodium 137 mmol/L 136-145 Potassium 4.4 mmol/L 3.5-5.1 Chloride 106 mmol/L 98-107 Carbon Dioxide 26 mmol/L 21-32 Anion Gap 5 mEq/L Low 8-16 Calcium 8.8 mg/dL 8.5-10.1 Total Protein 8.0 g/dL 6.4-8.2 Albumin 4.0 g/dL 3.4-5.0 Globulin 4.0 g/dL 1.9-4.3 Alb/Glob 1.0 ratio Bilirubin,Total 0.6 mg/dL 0.2-1.0 Sgot/Ast 14 U/L Low 15-37 22 SGPT/Alt 14 U/L 12-78 Alkaline Phosphatase 31 U/L Low 45-117 CBC W/Automated Diff 01/27/2016 [facility] White Blood 8.9 K/uL 3.1-10.[address] [place], [place] [id number] [phone] Red Blood Count 4.03 M/uL 3.90-5.40 Hemoglobin 8.0 gm/dL Low 11.6-15.8 Hematocrit 29.0 % Low 36.0-46.1 Mean Cell Volume 72.0 fl Low 80.9-99.0 Mean Corpuscular HGB 19.9 pg Low 25.9-32.7 Mean Corpuscular HGB Conc 27.6 g/dL Low 30.8-34.3 Platelet Count 104 K/uL Low 155-360 Red Cell Distri Width SD 49.1 fl High 3-47 Red Cell Distri Width %CV 19.1 % High 11.7-14.4 Neut% 57.5 % 40.4-72.8 Lymph % 23.1 % 17.0-46.1 [place] % 15.4 % High 4.3-13.2 Eo% 3.3 % 0.0-6.6 Bas% 0.7 % 0.0-1.1 Neut# 5.10 K/uL 1.8-7.0 Lymph # 2.04 K/uL 1.8-7.0 [place] # 1.36 K/uL High 0.3-0.9 Eos # 0.29 K/uL 0.0-0.5 Baso # 0.06 K/uL 0.0-0.1 Basic Metabolic Panel 12/09/2012 N2N/CCD Import Anion Gap 9 mEq/L 8-16 BUN 12 mg/dL 5-23 BUN/Creat 15.0 ratio Calcium 9.6 mg/dL 8.5-10.1 Carbon Dioxide 28 mEq/L 18-29 Chloride 107 mmol/L 98-107 Creatinine 0.8 mg/dL 0.5-1.4 Glom Filtration Rate, Estimate >60 mL/min >60 Glucose 85 mg/dL 76-115 If >60 mL/min >60 23 Potassium 4.0 mmol/L 3.5-5.1 Sodium 140 mmol/L 136-145 LDL Cholesterol Profile 12/09/2012 N2N/CCD Import Cholesterol 156 mg/dL 120-200 HDL Cholesterol 33 mg/dL 29-83 LDL-Cholesterol 86 mg/dL 62-185 Triglycerides 186 mg/dL 16-231 CBC W/Automated Diff 12/09/2012 N2N/CCD Import Bas% 0.5 % 0.0-1.1 Baso # 0.03 K/uL 0.0-0.1 Eo% 4.8 % 0.0-6.6 Eos # 0.29 K/uL 0.0-0.5 Hematocrit 37.6 % 36.0-46.1 Hemoglobin 12.9 gm/dL 11.6-15.8 Lymph # 2.01 K/uL 0.8-3.4 Lymph % 33.3 % 17.0-46.1 Mean Cell Volume 87.6 fl 80.9-99.0 Mean Corpuscular HGB 30.1 pg 25.9-32.7 Mean Corpuscular HGB Conc 34.3 g/dL 30.8-34.3 Mean Platelet Volume 10.6 fL 8.9-12.4 [place] # 0.48 K/uL 0.3-0.9 [place] % 7.9 % 4.3-13.2 Neut# 3.23 K/uL 1.0-7.0 Neut% 53.5 % 40.4-72.8 Platelet Count 157 K/uL 155-360 Red Blood Count 4.29 M/uL 3.90-5.40 Red Cell Distri Width %CV 13.2 % 11.7-14.4 Red Cell Distri Width SD 41.5 fl 3-47 White Blood Count 6.0 K/uL 3.1-10.7 CBC 10/13/2012 [facility] White Blood Count 12.1 K/uL High 3.1-10.[address] [place] [address] [phone] Red Blood Count 2.99 M/uL Low 3.90-5.40 Hemoglobin 9.8 gm/dL Low 11.6-15.8 Hematocrit 28.2 % Low 36.0-46.1 Mean Cell Volume 94.3 fl 80.9-99.0 Mean Corpuscular HGB 32.8 pg High 25.9-32.7 Mean Corpuscular HGB Conc 34.8 g/dL High 30.8-34.3 Platelet Count 117 K/uL Low 155-360 Red Cell Distri Width %CV 13.0 % 11.7-14.4 Mean Platelet Volume 10.8 fL 8.9-12.4 CBC 10/13/2012 N2N/CCD Import Hematocrit 28.2 % Low 36.0-46.1 Hemoglobin 9.8 gm/dL Low 11.6-15.8 Mean Cell Volume 94.3 fl 80.9-99.0 Mean Corpuscular HGB 32.8 pg High 25.9-32.7 Mean Corpuscular HGB Conc 34.8 g/dL High 30.8-34.3 Mean Platelet Volume 10.8 fL 8.9-12.4 Platelet Count 117 K/uL Low 155-360 Red Blood Count 2.99 M/uL Low 3.90-5.40 Red Cell Distri Width %CV 13.0 % 11.7-14.4 White Blood Count 12.1 K/uL High 3.1-10.7 Laboratory test 10/13/2012 N2N/CCD Import Rapid Plasma See Note 24 finding [place]agin Laboratory test 10/13/2012 [facility] Rapid Plasma See Note [address] [place] [address] [phone] Laboratory test 10/12/2012 [facility] Rapid Plasma NONREACTIVE [address] [place] [place] [address] [phone] CBC 10/12/2012 [facility] White Blood 13.9 K/uL High 3.1-[address] Count [address] [place] [address] [phone] Red Blood Count 2.91 M/uL Low 3.90-5.40 Hemoglobin 9.5 gm/dL Low 11.6-15.8 Hematocrit 27.7 % Low 36.0-46.1 Mean Cell Volume 95.2 fl 80.9-99.0 Mean Corpuscular HGB 32.6 pg 25.9-32.7 Mean Corpuscular HGB Conc 34.3 g/dL 30.8-34.3 Platelet Count 108 K/uL Low 155-360 Red Cell Distri Width %CV 13.1 % 11.7-14.4 Mean Platelet Volume 11.3 fL 8.9-12.4 Laboratory test 10/12/2012 N2N/CCD Import Rapid Plasma Nonreactive 27 finding Reagin Nonreactive CBC 10/12/2012 N2N/CCD Import Hematocrit 27.7 % Low 36.0- 46.1 Hemoglobin 9.5 gm/dL Low 11.6-15.8 Mean Cell Volume 95.2 fl 80.9-99.0 Mean Corpuscular HGB 32.6 pg 25.9-32.7 Mean Corpuscular HGB Conc 34.3 g/dL 30.8-34.3 Mean Platelet Volume 11.3 fL 8.9-12.4 Platelet Count 108 K/uL Low 155-360 Red Blood Count 2.91 M/uL Low 3.90-5.40 Red Cell Distri Width %CV 13.1 % 11.7-14.4 White Blood Count 13.9 K/uL High 3.1-10.7 Dna Probe N. Gono + 09/12/2012 N2N/CCD Import Dna Probe For See Note 28 C. Trach. Chlamydia Trac. Dna Probe For N. Gonorrhoeae See Note 29 Laboratory test 09/12/2012 N2N/CCD Import Vaginal Strep See Note 30 finding Screen Laboratory test 08/13/2012 N2N/CCD Import Glucose 61 mg/dL Low 70-100 finding Hemoglobin A1c 4.4 % Less than 6.0 31 Hemoglobin/Hematacrit 08/13/2012 N2N/CCD Import Hematocrit 35 % 35-47 Hemoglobin 12.0 g/dL 12.0-16.0 Laboratory test finding 06/14/2012 N2N/CCD Import Antibody Detection See Note 32 Antibody Screen Negative Hepatitis B Surface Antigen Nonreactive Nonreactive 33 Lead,Blood (Adult) 3 g/dL 0-19 34 Patient Blood Type O Pos Rapid Plasma Reagin Nonreactive Nonreactive 35 Rubella IgG Antibody Reactive Reactive Type And Screen See Note 36 Urine Culture See Note 37 Varicella-Zoster Virus IgG Ab 1.60 index . 38 CBS W/Automated Diff 06/14/2012 N2N/CCD Import Hematocrit 36.3 % 36.0- 46.1 Hemoglobin 12.6 gm/dL 11.6-15.8 Mean Cell Volume 91.9 fl 80.9-99.0 Mean Corpuscular HGB 31.9 pg 25.9-32.7 Mean Corpuscular HGB Conc 34.7 g/dL High 30.8-34.3 Mean Platelet Volume 11.6 fL 8.9-12.4 Platelet Count 137 K/uL Low 155-360 Red Blood Count 3.95 M/uL 3.90-5.40 Red Cell Distri Width %CV 13.4 % 11.7-14.4 Red Cell Distri Width SD 44.2 fl 3-47 White Blood Count 17.5 K/uL High 3.1-10.7 Differential-WBC Confirm 06/14/2012 N2N/CCD Import Atypical Lymph% 1 % 0 -7 Eosinophil% 2 % 0-5 Lymph% 19 % 17-56 Monocyte% 3 % 0-10 Neutrophils% 75 % High 33-73 Platelet Estimate Slight Decrease RBC Morphology Normal Total Cells Counted 100 #CELLS Dna Probe N. Gono + 06/14/2012 N2N/CCD Import Dna Probe For See Note 39 C. Trach. Chlamydia Trac. Dna Probe For N. Gonorrhoeae See Note 40 Genital Culture W/ Gram 06/14/2012 N2N/CCD Import Genital Culture See Note 41 Stain Gram Stain See Note 42 Laboratory test finding 06/14/2012 N2N/CCD Import HPV High Risk See Note 43 ThinPrep Pap: Cervix/Endocx See Note 44 1 E78.2 I25.10 2 Reference Guidelines*: Desirable: ........... < 200 mg/dL Borderline High: ..... 200-239 mg/dL High: ................ >=240 mg/dL * The National Cholesterol Education Program (NCEP) 3 Reference Guidelines*: Normal: ............. < 150 mg/dL Borderline High: .... 150-199 mg/dL High: ............... 200-499 mg/dL Very High: .......... > 500 mg/dL * Source: National Cholesterol Education Program (NCEP) 4 Reference Guidelines*: Low HDL: ..... < 40 mg/dL Normal: ..... 40-60 mg/dL Desirable: ... > 60 mg/dL *The National Cholesterol Education Program(NCEP) 5 Reference Guidelines*: Optimal:........... <100 mg/dL Near Optimal....... 100-129 mg/dL Borderline High.... 130-159 mg/dL High............... 160-189 mg/dL Very High.......... >=190 mg/dL * Source: National Cholesterol Education Program (NCEP) 6 Note: Persistent reduction for 3 months or more in an eGFR <60 mL/min/1.73 m2 defines CKD. Patients with eGFR values >/=60 mL/min/1.73 m2 may also have CKD if evidence of persistent proteinuria is present. The original MDRD equation for estimated GFR is not valid for patients less than 18 years of age. Additional information may be found at www.kdoqi.org. 7 D64.9 I42.1 E78.2 8 11/23/16 1351: NEUT% previously reported as: 70.0 % Amended result called to: [] 11/23/16 at 135011/23/16 1351: LYMPH % previously reported as: 17.5 L % Amended result called to: [] 11/23/16 at 135011/23/16 1351: MONO % previously reported as: 9.1 % Amended result called to: [] 11/23/16 at 135011/23/16 1351: EO% previously reported as: 3.1 % Amended result called to: [] 11/23/16 at 135011/23/16 1351: BAS% previously reported as: 0.3 % Amended result called to: [] 11/23/16 at 1351 9 Note: Persistent reduction for 3 months or more in an eGFR <60 mL/min/1.73 m2 defines CKD. Patients with eGFR values >/=60 mL/min/1.73 m2 may also have CKD if evidence of persistent proteinuria is present. The original MDRD equation for estimated GFR is not valid for patients less than 18 years of age. Additional information may be found at www.kdoqi.org. 10 Values below the stated reference ranges of AST and ALT can be seen in normal populations. Clinical correlation is suggested. 11 Reference Guidelines*: Desirable: ........... < 200 mg/dL Borderline High: ..... 200-239 mg/dL High: ................ >=240 mg/dL * The National Cholesterol Education Program (NCEP) 12 Reference Guidelines*: Normal: ............. < 150 mg/dL Borderline High: .... 150-199 mg/dL High: ............... 200-499 mg/dL Very High: .......... > 500 mg/dL * Source: National Cholesterol Education Program (NCEP) 13 Reference Guidelines*: Low HDL: ..... < 40 mg/dL Normal: ..... 40-60 mg/dL Desirable: ... > 60 mg/dL *The National Cholesterol Education Program(NCEP) 14 Reference Guidelines*: Optimal:........... <100 mg/dL Near Optimal....... 100-129 mg/dL Borderline High.... 130-159 mg/dL High............... 160-189 mg/dL Very High.......... >=190 mg/dL * Source: National Cholesterol Education Program (NCEP) 15 INDICATED,SLIDE SENT Hematology Consultation Final Report Case# [id number] Peripheral Blood smear: - Red blood cells show microcytosis and anisopoikilocytosis. - White blood cells and platelets are unremarkable. - Workup for iron deficiency anemia is suggested. Clinical data: Hemoglobin 9.6g/dl, MCV 68.2fl, RDW 19.2% BEBA RICE MD, Pathologist Reported 11/24/2016 at 12:21pm, Report electronically signed Performed at: [facility] [id number] [place] [address] 16 Note: Persistent reduction for 3 months or more in an eGFR <60 mL/min/1.73 m2 defines CKD. Patients with eGFR values >/=60 mL/min/1.73 m2 may also have CKD if evidence of persistent proteinuria is present. The original MDRD equation for estimated GFR is not valid for patients less than 18 years of age. Additional information may be found at www.kdoqi.org. 17 Values below the stated reference ranges of AST and ALT can be seen in normal populations. Clinical correlation is suggested. 18 Values below the stated reference ranges of AST and ALT can be seen in normal populations. Clinical correlation is suggested. 19 Instrument flagged sample for slide review. Less than 10% Bands seen, no other immature WBC's seen. RBC morphology essentially normal. Platelet estimate=ADEQUATE 20 Instrument flagged sample for slide review. Less than 10% Bands seen, no other immature WBC's seen. Platelet estimate=SLIGHT DECREASE 21 Note: Persistent reduction for 3 months or more in an eGFR <60 mL/min/1.73 m2 defines CKD. Patients with eGFR values >/=60 mL/min/1.73 m2 may also have CKD if evidence of persistent proteinuria is present. The original MDRD equation for estimated GFR is not valid for patients less than 18 years of age. Additional information may be found at www.kdoqi.org. 22 Values below the stated reference ranges of AST and ALT can be seen in normal populations. Clinical correlation is suggested. 23 Note: Persistent reduction for 3 months or more in an eGFR <60 mL/min/1.73 m2 defines CKD. Patients with eGFR values >/=60 mL/min/1.73 m2 may also have CKD if evidence of persistent proteinuria is present. The original MDRD equation for estimated GFR is not valid for patients less than 18 years of age. Additional information may be found at www.kdoqi.org. 24 DUPLICATE SPECIMEN, CANCELLED PER DUPLICATE SPECIMEN POLICY. SEE 1208:S3 25 DUPLICATE SPECIMEN, CANCELLED PER DUPLICATE SPECIMEN POLICY. SEE 1208:S[address] CRAIN [address] CRAIN 28 NEGATIVE FOR CHLAMYDIA TRACHOMATIS BY DNA HYBRIDIZATION ASSAY. THIS TEST IS APPROVED FOR OCULAR AND UROGENITAL SITES ONLY. 29 NEGATIVE FOR NEISSERIA GONORRHOEAE BY DNA HYBRIDIZATION ASSAY. THIS METHOD IS APPROVED FOR UROGENITAL SITES ONLY. 30 NO GROUP B STREPTOCOCCI ISOLATED 31 Therapeutic target for the treatment of diabetes Mellitus patients is <7% HBA1C, and in selective patients <6.0%.Please refer to [place] [employer] Diabetic care guidelines for further information. 32 No reportable results 33 HBsAg not detected; does not exclude the possibility of exposure to or early acute infections with HBV. 34 The Centers for Disease Control and Prevention states blood lead levels less than 10 ug/dL in children have been associated with numerous adverse health effects. [facility] Guidelines: Blood lead levels in the range 5-9 ug/dL have been associated with adverse health effects in children aged 6 years and younger. Environmental Exposure: WHO Recommendation <20 Occupational Exposure: OSHA Lead Std 40 Detection Limit=1 35 PENDING; TEST PERFORMED ON MONDAYS AND THURSDAYS 36 100.0450 06/14/12 LAB.P MANUAL TYPE AND SCREEN DONE 37 COLONY COUNT ! 50,000 - 60,000 CFU/ml Organism 1 ! URETHRAL ROBERT 38 Nonimmune <0.91 Equivocal 0.91 - 1.09 Immune >1.09 Performed at: [facility] [address] [place], [place] [id number] Psych Tech: Rebeka El MD, Phone: [phone] 39 NEGATIVE FOR CHLAMYDIA TRACHOMATIS BY DNA HYBRIDIZATION ASSAY. THIS TEST IS APPROVED FOR OCULAR AND UROGENITAL SITES ONLY. 40 NEGATIVE FOR NEISSERIA GONORRHOEAE BY DNA HYBRIDIZATION ASSAY. THIS METHOD IS APPROVED FOR UROGENITAL SITES ONLY. 41 GENITAL ROBERT 42 GRAM STAIN ! GRAM STAIN INDICATES NORMAL GENITAL ROBERT ! MANY GR POS. BACILLI SUGGESTIVE OF LACTOBACILLUS SP. 43 HPV,high-risk Positive This HPV test detects thirteen high-risk types (16/18/31/33/35/39/45/51/52/56/58/59/68) without differentiation. Testing Performed By: [facility], [address] [place] [address] 44 CYTOLOGY SCREENER - JEWELRY DIPPER @ 12/16 Screened by: ANGEL Hernandez(ASCP) PAP: FINAL REPORT SPECIMEN ADEQUACY: SPECIMEN SATISFACTORY FOR INTERPRETATION SAMPLE VIAL SENT OUT FOR HPV TESTING AT CLINICIAN'S REQUEST INTERPRETATION: ATYPICAL SQUAMOUS CELLS OF UNDETERMINED SIGNIFICANCE COMMENT: HIGH RISK HPV TEST (HPV HYBRID CAPTURE II): POSITIVE SPEC #: [id number] THINPREP PREPARED PAP SLIDE # Prepared in the Cytology laboratory from the ThinPrep sample is 1 ThinPrep smear. PAP ACCESSI QUESTIONNAIRE 11/14 PERTINENT CLINICAL HISTORY FOR PAP (JEWELRY DIPPER) CYTOLOGY (Check all that apply): ? Y Post ? Menopause? LMP date: 01/14 If patient had related surgical procedure: Related Therapy: Significant Clinical History: ===== DISCLAIMER: The Pap smear is a screening test and not a diagnostic procedure. False negative and false positive results can and do occur for a number of reasons. Regular screening provides an aid in detecting treatable cervical abnormalities, but should not be used as the only means for detecting cervical dysplasia and carcinoma. ----- ALFA Benton MD 06/19/12 1329 ----- Procedures Date Code Description Status 04/30/2018 15911 Event Monitor Inter/Review Only Completed 03/14/2018 35735 Stress Test Interpre And Report Only Completed 03/14/2018 78832 Stress Test Physician Super Only Completed 03/14/2018 43756 Myocardial Imaging Tomographic Multiple Study AT Rest Completed Or Stress 01/18/2018 34834 Bronchospasm Provocation Evaluation Multi Spirometric Completed Determinati 01/18/2018 80617 Spirometry Completed 08/15/2017 57572 ECHO Transthoracic Inc Performance Continuous Completed Electrocardio 06/20/2017 21122 EKG-Tracing And Report Completed 02/09/2017 66448 Event Monitor Inter/Review Only Completed 08/22/2016 93720 ECHO [employer]anst[employer] Performance Continuous Completed Electrocardio 08/21/2016 28656 Echocardiogram Complete Completed 08/11/2015 37093 Echocardiogram Complete Completed 08/11/2015 84319 Stress Test Interpre And Report Only Completed 08/11/2015 42467 Stress Test Physician Super Only Completed 08/11/2015 38225 Stress Test Physician Super Only Completed 08/11/2015 89901 Myocardial Imaging Tomographic Multiple Study AT Rest Completed Or Stress 08/04/2015 00393 EKG-Tracing And Report Completed 05/25/2015 29930579 Mammogram Completed 07/01/2013 75321 Echocardiogram Complete Completed 12/26/2012 95958 ECHO [employer] Performance Continuous Completed Electrocardio 12/09/2012 30382 EKG-Tracing And Report Completed 12/09/2012 56132 EKG-Tracing And Report Completed 10/11/2012 09531 Section Only Completed 10/11/2012 42848 Anesthesia, Delivery Completed 10/03/2012 81377 Antepartum 7 Or More Total Office Visit Completed 09/23/2012 37865 Antepartum 7 Or More Total Office Visit Completed 09/12/2012 26068 Antepartum 7 Or More Total Office Visit Completed 08/29/2012 69687 Antepartum 7 Or More Total Office Visit Completed 08/13/2012 93973 Antepartum 7 Or More Total Office Visit Completed 07/01/2012 07012 Antepartum 7 Or More Total Office Visit Completed 06/14/2012 80003 Antepartum 7 Or More Total Office Visit Completed 05/04/2011 06382 Anesthesia, Hysteroscopy, Hystersalpingography Completed Encounters Type Date Location Provider Dx Diagnosis Office Visit 12/04/2018 Cardiology Office Paulo Murdock MD I42.1 Obstructive 11:00a hypertrophic cardiomyopathy I25.42 Coronary artery dissection R00.2 Palpitations F17.210 Nicotine dependence, cigarettes, uncomplicated F41.9 Anxiety disorder, unspecified Office Visit 06/03/2018 10:30a Cardiology Office Paulo Murdock, I25.42 Coronary artery MD dissection I42.1 Obstructive hypertrophic cardiomyopathy R00.2 Palpitations F17.210 Nicotine dependence, cigarettes, uncomplicated R19.7 Diarrhea, unspecified Office Visit 04/18/2018 10:30a Cardiology Office Radha, I25.119 Athscl heart Marlyss B., PA disease of [place] cor art w unsp ang pctrs I42.1 Obstructive hypertrophic cardiomyopathy R00.2 Palpitations R53.83 Other fatigue E78.2 Mixed hyperlipidemia F17.210 Nicotine dependence, cigarettes, uncomplicated Office Visit 03/22/2018 11:20a Cardiology Office Radha, I25.10 Athscl heart Marlyss B., PA disease of [place] coronary artery w/o ang pctrs R94.30 Abnormal result of cardiovascular function study, unsp I42.1 Obstructive hypertrophic cardiomyopathy E78.2 Mixed hyperlipidemia R53.83 Other fatigue F17.210 Nicotine dependence, cigarettes, uncomplicated Office Visit 01/29/2018 1:00p Cardiology Office Radha, R07.9 Chest pain, Marlyss B., PA unspecified I42.1 Obstructive hypertrophic cardiomyopathy I25.10 Athscl heart disease of [place] coronary artery w/o ang pctrs E78.2 Mixed hyperlipidemia R53.83 Other fatigue Office Visit 10/10/2017 Cardiology Carla Loera I42.1 Obstructive 9:00a Office YI Pittman, hypertrophic ALUMINUM SHEET CUTTER cardiomyopathy I25.10 Athscl heart disease of [place] coronary artery w/o ang pctrs E78.2 Mixed hyperlipidemia Office Visit 08/20/2017 3:10p Cardiology Office Paulo Murdock, I42.1 Obstructive MD hypertrophic cardiomyopathy I25.42 Coronary artery dissection R42 Dizziness and giddiness F17.210 Nicotine dependence, cigarettes, uncomplicated Office Visit 08/14/2017 4:00p Pulmonology Martín Urbano MD J44.9 Chronic obstructive pulmonary disease, unspecified F17.210 Nicotine dependence, cigarettes, uncomplicated Z71.6 Tobacco abuse counseling Office Visit 06/20/2017 Cardiology Carla Loera I42.1 Obstructive 11:40a Office YI Pittman, hypertrophic ALUMINUM SHEET CUTTER cardiomyopathy I25.10 Athscl heart disease of [place] coronary artery w/o ang pctrs E78.2 Mixed hyperlipidemia D64.9 Anemia, unspecified I34.0 Nonrheumatic mitral (valve) insufficiency Office Visit 02/22/2017 1:45p Pulmonology Martín Urbano MD J41.0 Simple chronic bronchitis F17.210 Nicotine dependence, cigarettes, uncomplicated Z71.6 Tobacco abuse counseling J30.81 Allergic rhinitis due to animal (cat) (dog) hair and dander Office Visit 01/31/2017 11:00a Cardiology Office Carla Loera R00.2 Palpitations YI Pittman, ALUMINUM SHEET CUTTER I42.1 Obstructive hypertrophic cardiomyopathy I25.10 Athscl heart disease of [place] coronary artery w/o ang pctrs E78.2 Mixed hyperlipidemia D64.9 Anemia, unspecified F17.210 Nicotine dependence, cigarettes, uncomplicated I34.0 Nonrheumatic mitral (valve) insufficiency Office Visit 11/23/2016 Cardiology Carla Loera I42.1 Obstructive 10:20a Office YI Pittman, hypertrophic ALUMINUM SHEET CUTTER cardiomyopathy I25.10 Athscl heart disease of [place] coronary artery w/o ang pctrs D64.9 Anemia, unspecified E78.2 Mixed hyperlipidemia F17.210 Nicotine dependence, cigarettes, uncomplicated I34.0 Nonrheumatic mitral (valve) insufficiency Office Visit 10/23/2016 1:45p Pulmonology Martín Urbano MD J41.0 Simple chronic bronchitis F17.210 Nicotine dependence, cigarettes, uncomplicated Z71.6 Tobacco abuse counseling J30.89 Other allergic rhinitis Office Visit 09/18/2016 11:00a Cardiology Office Dora Fernandez I25.10 Athscl heart A., ANP disease of [place] coronary artery w/o ang pctrs I42.1 Obstructive hypertrophic cardiomyopathy D64.9 Anemia, unspecified F17.210 Nicotine dependence, cigarettes, uncomplicated E78.2 Mixed hyperlipidemia J44.9 Chronic obstructive pulmonary disease, unspecified Office Visit 08/21/2016 1:00p Pulmonology Martín Urbano MD R06.02 Shortness of breath Z71.6 Tobacco abuse counseling G47.33 Obstructive sleep apnea (adult) (pediatric) J30.89 Other allergic rhinitis F17.210 Nicotine dependence, cigarettes, uncomplicated J45.20 Mild intermittent asthma, uncomplicated Office Visit 08/07/2016 9:40a Cardiology Office Dora Fernandez I25.10 Athscl heart A., ANP disease of [place] coronary artery w/o ang pctrs I42.1 Obstructive hypertrophic cardiomyopathy D64.9 Anemia, unspecified E78.2 Mixed hyperlipidemia I10 Essential (primary) hypertension J44.9 Chronic obstructive pulmonary disease, unspecified F17.210 Nicotine dependence, cigarettes, uncomplicated Office Visit 06/15/2016 10:00a Cardiology Office Dora Fernandez I25.10 Athscl heart A., ANP disease of [place] coronary artery w/o ang pctrs I42.1 Obstructive hypertrophic cardiomyopathy D64.9 Anemia, unspecified E78.2 Mixed hyperlipidemia I10 Essential (primary) hypertension J44.9 Chronic obstructive pulmonary disease, unspecified F17.210 Nicotine dependence, cigarettes, uncomplicated Office Visit 04/07/2016 9:40a Cardiology Office Dora Fernandez I25.10 Athscl heart A., ANP disease of [place] coronary artery w/o ang pctrs I42.1 Obstructive hypertrophic cardiomyopathy D64.9 Anemia, unspecified E78.2 Mixed hyperlipidemia Office Visit 01/27/2016 11:30a Cardiology Office Dora Fernandez I25.10 Athscl heart A., ANP disease of [place] coronary artery w/o ang pctrs I42.1 Obstructive hypertrophic cardiomyopathy D64.9 Anemia, unspecified E78.2 Mixed hyperlipidemia Office Visit 12/31/2015 11:00a Cardiology Office Dora Fernandez I25.10 Athscl heart A., ANP disease of [place] coronary artery w/o ang pctrs I10 Essential (primary) hypertension I42.1 Obstructive hypertrophic cardiomyopathy J01.90 Acute sinusitis, unspecified D64.9 Anemia, unspecified E78.2 Mixed hyperlipidemia Office Visit 08/04/2015 11:00a Cardiology Office Dora Fernandez I25.10 Athscl heart A., ANP disease of [place] coronary artery w/o ang pctrs I10 Essential (primary) hypertension E78.2 Mixed hyperlipidemia R07.2 Precordial pain R06.02 Shortness of breath Z79.01 senior care (current) use of anticoagulants Office Visit 07/02/2013 Cardiology Mohamud Guidry 414.01 Coronary 1:20p Office MD Stan, PhD Atherosclerosis [place] 401.1 Hypertension Benign 272.2 Hyperlipidemia Mixed 786.51 Pain Precordial Office Visit 05/21/2013 Cardiology Dora Fernandez 414.01 Coronary 3:10p Office A., ANP Atherosclerosis [place] 401.1 Hypertension Benign 272.2 Hyperlipidemia Mixed 414.00 Coronary Atherosclerosis Unspec Type Vessel [place]/Graft 786.05 Shortness Of Breath Office Visit 01/09/2013 Cardiology Mohamud Guidry 414.01 Coronary 2:10p Office MD Stan, PhD Atherosclerosis [place] 401.1 Hypertension Benign 272.2 Hyperlipidemia Mixed 786.05 Shortness Of Breath Office Visit 12/09/2012 Cardiology Dora Fernandez 414.01 Coronary 1:10p Office A., ANP Atherosclerosis [place] 401.1 Hypertension Benign 272.2 Hyperlipidemia Mixed Plan of Treatment Future Appointment(s):12/19/2018 10:30 am - Rad[facility] Flores [facility]/04/2018 - Paulo Murdock MDI42.1 Obstructive hypertrophic cardiomyopathyComments:Feels well with only low dose Metoprolol. No issues.I25.42 Coronary artery dissectionComments:S/p PCI. No symptoms of ischemia recently. Last cath 2018 [id number] PalpitationsComments:Seldom and related to anxiety and stress situations. Will hold off additional cardiac [id number] Nicotine dependence, cigarettes, uncomplicatedComments:Not ready to quit due to her [id number] Anxiety disorder, unspecifiedComments:Encouraged to resume counseling herselfAllFollow up:6 months. Sooner appt if symptoms arise. Pt requested new PCP referral preferably female. Will refer to Dr Flores
--- NOTE | 2019-01-01 12:32 | UC ---
Ear Complaint HPI - HPI Summary HPI Summary: 43 y/o female presents to the urgent care c/o blood coming out of her left ear since yesterday after she had a dental procedure done in her left lower jaw. Pt reports she has Hx of heart murmur and she has been on Clindamycin PO for almost the past month Rx by her Dentist who has been doing a dental procedure. She also takes ASA daily. She reports she felt a little pressure on her Left ear after the procedure w/ pain and decrease hearing. This morning she noticed blood was coming out of her ear. Pt states Hx of ear infections in the past, but has never seen a ENT. Pt states ear pain is mild now 5/10. Pt denies fever, dizziness , tinnitus, COR[place]ET[place], SOB, chest pain, difficulty swallowing, abdominal pain , N/V/D. - History of Current Complaint Chief Complaint: UCEar Stated Complaint: BLOOD COMING FROM EAR Time Seen by Provider: 01/01/19 12:01 Hx Obtained From: Patient Hx Last Menstrual Period: hyster ?: No Onset/Duration: Gradual Onset, Lasting Days - 1 week of ear pain, Still Present , Worse Since - yesterday w/ blood coming out of left ear Severity Initially: Mild Severity Currently: Mild Pain Intensity: 5 Pain Scale Used: 0-10 Numeric Aggravating Factors: Other - touch of left ear Alleviating Factors: OTC Meds Associated Signs/Symptoms: Positive: Hearing Loss - left ear, URI Symptoms - Allergies/Home Medications Allergies/Adverse Reactions: Allergies Allergy/AdvReac Type Severity Reaction Status Date / Time Penicillins Allergy Nausea And Verified 01/01/19 10:09 Vomiting milk Allergy Abdominal Uncoded 01/01/19 10:09 Pain PMH/Surg Hx/FS Hx/Imm Hx Previously Healthy: Yes Cardiovascular History: Cardiac Disease Other Cardiovascular History: cardiomegaly and aortic stenosis - Surgical History Surgical History: Yes Surgery Procedure, Year, and Place: c section x 2, cardiac stents x2 2012 - Family History Known Family History: Positive: Cardiac Disease, Diabetes - Social History Occupation: Unemployed Lives: With Family Alcohol Use: Rare Substance Use Type: None Smoking Status (MU): Heavy Every Day Tobacco Smoker Type: Cigarettes Amount Used/How Often: 2 PPD Length of Time of Smoking/Using Tobacco: 10 yrs Have You Smoked in the Last Year: Yes Household Exposure Type: Cigarettes Review of Systems All Other Systems Reviewed And Are Negative: Yes Constitutional: Positive: Negative Skin: Positive: Negative Eyes: Positive: Negative ENT: Positive: Ear Ache - left ear w/ blood and ear pain, Nasal Discharge - clear, Other - decreae hearing Respiratory: Positive: Negative Cardiovascular: Positive: Negative Gastrointestinal: Positive: Negative Genitourinary: Positive: Negative Motor: Positive: Negative Neurovascular: Positive: Negative Musculoskeletal: Positive: Negative Neurological: Positive: Negative Psychological: Positive: Negative Is Patient Immunocompromised?: No Physical Exam - Summary Physical Exam Summary: Vital signs: reviewed General: well developed, well nourished female sitting in the examining table w/ o any apparent distress Skin: [place], warm and dry, no evidence of atopic dermatitis, psoriasis, seborrhea. HEENT: -Head: atraumatic, non tender; no scalp dermatitis. -Eyes: sclera and conjunctiva clear, PERRLA, EOMI -Ears: no pre- or postauricular lymphadenopathy or erythema; LF external ear canal with dry bright red blood w/ mild pinna tenderness on palpation, LF TM with a perforation around 6 o'clock, Rt external ear canal clear and RT TM WNL. TMs normal w/out bulging or retraction. Good light reflex. No fluid level, vesicles, or bullae. No perforation. -Nose/Face: erythematous and edematous nasal mucosa with clear rhinorrhea, no frontal or maxillary sinus tender to palpation. -Mouth/Throat: Mucous membrane moist, posterior pharynx clear, no erythema or exudates. mild erythema and swelling around mollars #17 and 18 from recent dental procedure. non tender to percussion. Neck: supple, FROM, nontender, no lymphadenopathy, no meningismus. Chest: Clear to auscultation, normal breath sounds Abd: soft, Bowel sounds active, Nontender. Back: no spinal or CVAT Neuro: A&O x4, GCS 15, no focal neuro deficits, normal behavior for age. Triage Information Reviewed: Yes Vital Signs: Initial Vital Signs Temp 97 F 01/01/19 10:05 Pulse 59 01/01/19 10:05 Resp 18 01/01/19 10:05 BP 133/72 01/01/19 10:05 Pulse Ox 100 01/01/19 10:05 Ear Complaint Course/Dx - Course Course Of Treatment: 43 y/o female presents to the urgent care c/o blood coming out of her left ear since yesterday after she had a dental procedure done in her left lower jaw. Pt reports she has Hx of heart murmur and she has been on Clindamycin PO for almost the past month Rx by her Dentist who has been doing a dental procedure. She also takes ASA daily. She reports she felt a little pressure on her Left ear after the procedure w/ pain and decrease hearing. This morning she noticed blood was coming out of her ear. Pt states Hx of ear infections in the past, but has never seen a ENT. Pt states ear pain is mild now 5/10. Pt denies fever, dizziness , tinnitus, CORBET[place], SOB, chest pain, difficulty swallowing, abdominal pain, N/V/D. Hx obtained. Pt w/ LF external ear canal with dry bright red blood w/ mild pinna tenderness on palpation, LF TM with a perforation around 6 o'clock on examination. Pt's symptoms discussed w / DR Raymond and she recommended otic drops and f/u w/ ENT. Pt Rx Ciprofloxacin otic drops as directed below and givne a ENT referral w/ Dr Ramos for further evaluation and treatment. Pt also strongly advised to f/u w/ her Dentist. D/C instructions exaplained. Pt understood and agreed w/ plan of care and left the clinic ambulating, A&OX3 - Differential Dx/Diagnosis Differential Diagnosis/HQI/PQRI: Otitis Externa, Otitis Media, Perforated TM, Pharyngitis Provider Diagnosis: Perforated left tympanic membrane on examination, Otalgia, left ear Discharge - Sign-Out/Discharge Documenting (check all that apply): Patient Departure - D/c home All imaging exams completed and their final reports reviewed: No Studies - Discharge Plan Condition: Stable Disposition: HOME Prescriptions: Ciprofloxacin HCl [Ciprofloxacin 0.2% EAR DROPS] 0.2 % OT BID #1 christelle Patient Education Materials: Ruptured Eardrum (ED) Referrals: [facility] [place] [facility] REFERRAL [Outside] - 1 Day Cedric Ramos MD [Medical Doctor] - 1 Day Additional Instructions: 1-Please apply otic antibiotic on your LF ear as directed to prevent infection. 2-continue taking Oxycodone and Clindamycin PO for your dental procedure. Please take yougurt w/ probiotics or culturelle to protect your GI system 3-Please f/u with ENT Dr Ramos in 1-2 days for further evaluation and treatment on your perforated TM and decrease hearing.. - Billing Disposition and Condition Condition: STABLE Disposition: Home
[2019-01-01 13:14] VITALS: BP 157/98
== END 2019-01-01 13:14 | disposition home or self-care (01) ==
LOC: UCEAST 09:54
DX: H72.92 Unspecified perforation of tympanic membrane, left ear (principal); H92.02 Otalgia, left ear; F17.210 Nicotine dependence, cigarettes, uncomplicated; Z88.0 Allergy status to penicillin; Z91.011 Allergy to milk products
CPT/HCPCS: 99212; G0463